=== PATIENT | female | born 1935 | race Caucasian/White ===

== ENCOUNTER 2017-01-09 22:02 | Emergency (ER) | payer MEDICARE, OTHER ==
[~2017-01-09] VITALS: Ht 157.5 cm; Wt 58.0 kg
[~2017-01-09 22:02] MED LIST: ALEN70 PO; CALA240T PO; CHLO25TA24 PO; CHOL1CAP6 PO; DORZ1SOL2 EACH EYE; ENAL20TA PO; ESTR42.5V PV; LIPI20TA PO; MULTCAP2 PO; OMEP20TA PO; TYLE3 PO; TYLE500T PO; VITA100017 PO; VITA100020 SL
[2017-01-09 22:04] VITALS: BP 210/102; PULSE 79; RESP 16; TEMP 97.9; O2SAT 98
[2017-01-09] MEDS ORDERED: OMEP20TA93 PO (23:20)
[2017-01-09] MEDS ORDERED: METO25TA3 PO (23:20)
[2017-01-09] MEDS ORDERED: ENAL20TA PO (23:20)
[2017-01-10 00:44] LABS: BICARBONATE 24.8 MEQ/L (21.0-32.0); CALCIUM 9.4 MG/DL (8.5-10.1); CREATININE 0.7 MG/DL (0.50-1.00)
[2017-01-10 00:46] VITALS: BP 163/73; PULSE 64; RESP 16; O2SAT 98
--- NOTE | 2017-01-10 01:10 | PD ---
HPI Chief Complaint: Hypertension Time Seen by Provider: 23:25 Travel History International Travel<30 days: No Contact w/Intl Traveler<30days: No Traveled to known affect area: No History of Present Illness HPI 81 year-old woman presents emergent department complaining of increased blood pressure. She with her doctor on Thursday and she was told to monitor her blood pressure come to the emergency department if it continues to be elevated. No real symptoms. Otherwise feeling okay. Blood pressure was in the 180s today. History Past Medical History Narrative Medical Hypertension on hyperlipidemia. Menopausal: Yes Social History Alcohol Use: No Tobacco Use: No Allergies-Medications (Allergen,Severity, Reaction): Coded Allergies: No Known Allergies (Verified , 01/11/15) Reported Meds & Prescriptions Reported Meds & Active Scripts Active Reported Omeprazole 20 Mg Tab 20 Mg PO DAILY Enalapril (Enalapril Maleate) 20 Mg Tab 20 Mg PO BID Metoprolol Tartrate 25 Mg Tab 25 Mg PO BID Review of Systems Except as stated in HPI: all other systems reviewed are Neg Physical Exam Narrative GENERAL: Well-appearing 81 year-old woman, no acute distress. SKIN: Focused skin assessment warm/dry. HEAD: Atraumatic. Normocephalic. EYES: Pupils equal and round. No scleral icterus. No injection or drainage. ENT: No nasal bleeding or discharge. Mucous membranes pink and moist. NECK: Trachea midline. No JVD. CARDIOVASCULAR: Regular rate and rhythm. No murmur appreciated. RESPIRATORY: No accessory muscle use. Clear to auscultation. Breath sounds equal bilaterally. GASTROINTESTINAL: Abdomen soft, non-tender, nondistended. Hepatic and splenic margins not palpable. MUSCULOSKELETAL: No obvious deformities. No clubbing. No cyanosis. No edema. NEUROLOGICAL: Awake and alert. No obvious cranial nerve deficits. Motor grossly within normal limits. Normal speech. PSYCHIATRIC: Appropriate mood and affect; insight and judgment normal. Data Data Last Documented VS Vital Signs Date Time Temp Pulse Resp B/P (MAP) Pulse Ox O2 Delivery O2 Flow Rate FiO2 01/10/17 00:46 64 16 163/73 (103) 98 Room Air 01/09/17 22:04 97.9 Orders Orders Basic Metabolic Panel (Bmp) (01/09/17 23:51) Labs Laboratory Tests Test 01/09/17 23:50 Blood Urea Nitrogen 15 MG/DL Creatinine 0.70 MG/DL Random Glucose 126 MG/DL Calcium Level 9.4 MG/DL Sodium Level 129 MEQ/L Potassium Level 3.5 MEQ/L Chloride Level 94 MEQ/L Carbon Dioxide Level 24.8 MEQ/L Anion Gap 10 MEQ/L Estimat Glomerular Filtration Rate 81 ML/MIN MDM Medical Decision Making Medical Screen Exam Complete: Yes Emergency Medical Condition: Yes Interpretation(s) LABS: BMP is unremarkable. Glucose 126. Differential Diagnosis High blood pressure. Narrative Course 81 year-old woman presents emergent part elevated blood pressure. Minimal symptoms. Creatinines okay. She has a pacemaker. Heart rates in the 60s and 70s. We'll increase metoprolol have her follow-up as an outpatient. Diagnosis Primary Impression: Hypertension Additional Instructions: Follow-up with her primary doctor this week. If blood pressure continues to be elevated above 180 systolic, you can double here metoprolol. Return to the emergency department for any new or worsening symptoms. Med/Other Pt SpecificInfo: No Change to Meds Disposition: 01 DISCHARGE HOME Condition: Stable Lexx Taylor MD Jan 10, 2017 01:10
[2017-01-10 01:12] VITALS: BP 150/67; PULSE 58
== END 2017-01-10 01:28 | disposition home or self-care (01) ==
LOC: NEPE 22:02
DX: I10 Essential (primary) hypertension (principal); E78.5 Hyperlipidemia, unspecified
CPT/HCPCS: 80048; 99283